=== PATIENT | female | born 1980 | race Caucasian/White ===

== ENCOUNTER 2017-01-16 13:12 | Emergency (ER) | payer MEDICARE | END 2017-01-16 15:15 | disposition home or self-care (01) | LOC: ER 13:12 | DX: L03.116 Cellulitis of left lower limb (principal); L03.91 Acute lymphangitis, unspecified; J44.9 Chronic obstructive pulmonary disease, unspecified; F41.8 Other specified anxiety disorders; F17.210 Nicotine dependence, cigarettes, uncomplicated; Z88.8 Allergy status to other drugs, medicaments and biological substances; Z88.5 Allergy status to narcotic agent | CPT/HCPCS: 96372 ==